=== PATIENT | male | born 1960 | race Caucasian/White ===

== ENCOUNTER 2018-02-11 10:46 | Inpatient (IN) | payer MEDICAID, MEDICARE ==
[~2018-02-11] VITALS: Ht 175.3 cm; Wt 82.0 kg
[2018-02-11] MEDS ORDERED: METF500T4 PO (11:02)
[2018-02-11] MEDS ORDERED: CALC168T7 PO (11:02)
[2018-02-11 11:40] LABS: BASOPHILS # (AUTO) 0.02 x10^3/uL (0-0.1); BASOPHILS % (AUTO) 0 % (0-1); EOSINOPHILS # (AUTO) 0.25 x10^3/uL (0-0.4); EOSINOPHILS % (AUTO) 2 % (1-7); LYMPHOCYTES # (AUTO) 2.11 x10^3/uL (1-3.4); LYMPHOCYTES % (AUTO) 18 % (22-44); MD NO; MEAN CORPUSCULAR HEMOGLOBIN 34.4 pg (27.5-34.5); MEAN CORPUSCULAR HGB CONC 34.6 g/dL (33.2-36.2); MEAN CORPUSCULAR VOLUME 99.4 fL (81-97); MEAN PLATELET VOLUME 8.2 fL (7.4-10.4); MONOCYTES # (AUTO) 1.09 x10^3/uL (0.2-0.8); MONOCYTES % (AUTO) 9 % (2-9); NEUTROPHILS % (AUTO) 70 % (42-75); PLATELET COUNT 236 x10^3/uL (130-400); RED BLOOD COUNT 4.47 x10^6/uL (4.38-5.82); RED CELL DISTRIBUTION WIDTH 13.6 % (9.4-14.8)
[2018-02-11 11:51] LABS: ANION GAP 12 mmol/L (5-15); CALCIUM 9.8 mg/dL (8.5-10.1); CHLORIDE 103 mmol/L (98-107); CREATININE 1.33 mg/dL (0.7-1.3)
[2018-02-11 12:00] LABS: MICROSCOPIC NOT IND
[2018-02-11 12:09] LABS: CULTURE INDICATED? NO
[2018-02-11] MEDS ORDERED: PIPERACILLIN/TAZO/PMX 4.5GM 100 ML IV ONE (15:30)
[2018-02-11] MEDS ORDERED: BUPIVACAINE/PF 0.25% ONE (15:48)
[2018-02-11] MEDS ORDERED: VANCOMYCIN PER PHARMACY MC PRN (16:00)
[2018-02-11] MEDS ORDERED: ONDANSETRON 2MG/ML, 2ML IVPush PRN (16:00)
[2018-02-11] MEDS ORDERED: MIDAZOLAM 1 MG/ML, 2ML ONE (16:00)
[2018-02-11] MEDS ORDERED: morphine SULFATE 10 MG/ML, 1ML IVPush PRN (16:00)
[2018-02-11] MEDS ORDERED: VANCOMYCIN PMX 1GM/200ML 200 ML IV ONE (16:00)
[2018-02-11] MEDS ORDERED: FENTANYL PF 100 MCG/2ML ONE (16:00)
[2018-02-11] MEDS ORDERED: hydrALAzine 20 MG/ML, 1ML IVPush PRN (16:00)
[2018-02-11] MEDS ORDERED: SUCCINYLCHOLINE 20 MG/ML, 10ML ONE (16:28)
[2018-02-11] MEDS ORDERED: PROPOFOL 10 MG/ML, 20ML ONE (16:28)
[2018-02-11] MEDS ORDERED: ROCURONIUM 10 MG/ML,10ML ONE (16:28)
[2018-02-11] MEDS ORDERED: ONDANSETRON 2MG/ML, 2ML ONE (16:28)
[2018-02-11] MEDS: INSULIN LISPRO 100 UNITS/ML, PEN SQ-INSULIN SCH ×2 (16:30→22:04)
[2018-02-11] MEDS ORDERED: BACITRACIN OINT 500U/GM, 15 GM ONE (17:00)
[2018-02-11] MEDS ORDERED: INSULIN SINGLE DOSE, ER SQ-INSULIN ONE (17:19)
[2018-02-11 17:29] LABS: FREE T4 (FREE THYROXINE) 1.05 ng/dL (0.76-1.46); THYROID STIMULATING HORMONE 1.82 mIU/L (0.358-3.740)
[2018-02-11] MEDS ORDERED: morphine SULFATE 10 MG/ML, 1ML IV PRN (17:30)
[2018-02-11] MEDS ORDERED: MIDAZOLAM 1 MG/ML, 2ML IV PRN (17:30)
[2018-02-11] MEDS ORDERED: PROMETHAZINE 25 MG/ML, 1ML IV PRN (17:30)
[2018-02-11] MEDS ORDERED: ACETAMINOPHEN 325 MG TABLET PO PRN (17:30)
[2018-02-11] MEDS ORDERED: FENTANYL PF 100 MCG/2ML IV PRN (17:30)
[2018-02-11 17:41] LABS: HEMOGLOBIN A1C 12.7 % (4.2-6.3)
[2018-02-11] MEDS ORDERED: ACETAMINOPHEN 650 MG/20.3 ML UDC ONE (17:55)
[2018-02-11] MEDS: OXYcodone 5 MG/5 ML ORAL.SOL UDC PO PRN ×2 (17:55→22:36)
[2018-02-11] MEDS: ACETAMINOPHEN 325 MG TABLET PO PRN ×2 (17:55→21:45)
[2018-02-11] MEDS ORDERED: OXYcodone 5 MG/5 ML ORAL.SOL UDC ONE (17:56)
[2018-02-11] MEDS ORDERED: PIPERACILLIN/TAZO 2.25 GM in SODIUM CHLORIDE 0.9% 50 ML IV SCH (18:30)
[2018-02-11] MEDS: SODIUM CHLORIDE 0.9% 1,000 ML IV SCH (18:45)
[2018-02-11 18:55] VITALS: BP 133/86
[2018-02-11] MEDS ORDERED: PHARMACOKINETIC CONSULTATION MC ONE (19:00)
[2018-02-11] MEDS ORDERED: PHARMACOKINETIC MONITORING MC PRN (19:00)
[2018-02-11] MEDS: VANCOMYCIN 1,600 MG in SODIUM CHLORIDE 0.9% 250 ML IV SCH (19:58)
[2018-02-11] MEDS: NICOTINE 21 MG/24 HR PATCH.TD24 TD SCH (21:42)
[2018-02-11] MEDS: PIPERACILLIN/TAZO/PMX 2.25GM 50 ML IV SCH (21:42)
[2018-02-11] MEDS: INSULIN GLARGINE 100 UNITS/ML, PEN SQ-INSULIN SCH (22:04)
[2018-02-11 23:53] VITALS: BP 110/67
[2018-02-12] MEDS: HYDROcodone/APAP 5/325 TABLET PO PRN ×6 (03:00→23:19)
[2018-02-12] MEDS: PIPERACILLIN/TAZO/PMX 2.25GM 50 ML IV SCH ×4 (03:11→20:41)
[2018-02-12 03:59] VITALS: BP 157/88
[2018-02-12 06:11] LABS: BASOPHILS # (AUTO) 0.08 x10^3/uL (0-0.1); BASOPHILS % (AUTO) 1 % (0-1); EOSINOPHILS % (AUTO) 3 % (1-7); LYMPHOCYTES % (AUTO) 17 % (22-44); MD NO; MEAN CORPUSCULAR HEMOGLOBIN 34.1 pg (27.5-34.5); MEAN CORPUSCULAR HGB CONC 34.2 g/dL (33.2-36.2); MEAN CORPUSCULAR VOLUME 99.8 fL (81-97); MEAN PLATELET VOLUME 8.1 fL (7.4-10.4); MONOCYTES # (AUTO) 1.25 x10^3/uL (0.2-0.8); MONOCYTES % (AUTO) 9 % (2-9); NEUTROPHILS # (AUTO) 9.54 x10^3/uL (1.8-6.8); NEUTROPHILS % (AUTO) 70 % (42-75); PLATELET COUNT 206 x10^3/uL (130-400); RED BLOOD COUNT 4.25 x10^6/uL (4.38-5.82); RED CELL DISTRIBUTION WIDTH 13.2 % (9.4-14.8)
[2018-02-12 06:20] LABS: ALBUMIN 2.5 g/dL (3.4-5.0); ANION GAP 8 mmol/L (5-15); CALCIUM 8.6 mg/dL (8.5-10.1); CHLORIDE 105 mmol/L (98-107)
[2018-02-12 06:24] LABS: ALANINE AMINOTRANSFERASE 20 U/L (12-78); ALKALINE PHOSPHATASE 74 U/L (45-117); BILIRUBIN,TOTAL 0.6 mg/dL (0.2-1.0); CREATININE 0.97 mg/dL (0.7-1.3); TOTAL PROTEIN 6.8 g/dL (6.4-8.2)
[2018-02-12] MEDS: SODIUM CHLORIDE 0.9% 1,000 ML IV SCH ×2 (06:48→21:00)
[2018-02-12 07:20] VITALS: BP 155/93
[2018-02-12] MEDS: INSULIN LISPRO 100 UNITS/ML, PEN SQ-INSULIN SCH ×4 (08:02→20:58)
[2018-02-12] MEDS ORDERED: MAGNESIUM SULFATE PMX 2GM/50ML 50 ML IV ONE (09:30)
[2018-02-12] MEDS ORDERED: POTASSIUM PHOSPHATE 44 MEQ in SODIUM CHLORIDE 0.9% 500 ML IV ONE (09:30)
[2018-02-12] MEDS: VANCOMYCIN 1,600 MG in SODIUM CHLORIDE 0.9% 250 ML IV SCH (13:42)
[2018-02-12 13:50] VITALS: BP 149/83
[2018-02-12 18:40] VITALS: BP 144/88
[2018-02-12] MEDS: NICOTINE 21 MG/24 HR PATCH.TD24 TD SCH (20:48)
[2018-02-12] MEDS: INSULIN GLARGINE 100 UNITS/ML, PEN SQ-INSULIN SCH (20:58)
[2018-02-13 01:47] VITALS: BP 129/80
[2018-02-13] MEDS: PIPERACILLIN/TAZO/PMX 2.25GM 50 ML IV SCH ×4 (03:28→20:42)
[2018-02-13] MEDS: HYDROcodone/APAP 5/325 TABLET PO PRN ×5 (03:28→20:01)
[2018-02-13 05:54] LABS: BASOPHILS # (AUTO) 0.05 x10^3/uL (0-0.1); BASOPHILS % (AUTO) 0 % (0-1); EOSINOPHILS # (AUTO) 0.27 x10^3/uL (0-0.4); EOSINOPHILS % (AUTO) 2 % (1-7); LYMPHOCYTES # (AUTO) 1.91 x10^3/uL (1-3.4); LYMPHOCYTES % (AUTO) 15 % (22-44); MD NO; MEAN CORPUSCULAR HEMOGLOBIN 34.1 pg (27.5-34.5); MEAN CORPUSCULAR HGB CONC 34.5 g/dL (33.2-36.2); MEAN CORPUSCULAR VOLUME 98.9 fL (81-97); MEAN PLATELET VOLUME 7.9 fL (7.4-10.4); MONOCYTES # (AUTO) 1.18 x10^3/uL (0.2-0.8); MONOCYTES % (AUTO) 9 % (2-9); NEUTROPHILS # (AUTO) 9.31 x10^3/uL (1.8-6.8); NEUTROPHILS % (AUTO) 73 % (42-75); PLATELET COUNT 227 x10^3/uL (130-400); RED BLOOD COUNT 4.15 x10^6/uL (4.38-5.82); RED CELL DISTRIBUTION WIDTH 13.4 % (9.4-14.8)
[2018-02-13 05:55] LABS: ALANINE AMINOTRANSFERASE 21 U/L (12-78); ALBUMIN 2.6 g/dL (3.4-5.0); ANION GAP 9 mmol/L (5-15); CALCIUM 8.7 mg/dL (8.5-10.1); CHLORIDE 103 mmol/L (98-107); CREATININE 0.78 mg/dL (0.7-1.3)
[2018-02-13 05:57] LABS: ALKALINE PHOSPHATASE 87 U/L (45-117); BILIRUBIN,TOTAL 0.6 mg/dL (0.2-1.0); TOTAL PROTEIN 6.9 g/dL (6.4-8.2)
[2018-02-13] MEDS: VANCOMYCIN 1,600 MG in SODIUM CHLORIDE 0.9% 250 ML IV SCH (06:36)
[2018-02-13] MEDS: INSULIN LISPRO 100 UNITS/ML, PEN SQ-INSULIN SCH ×4 (07:42→20:42)
[2018-02-13] MEDS: SODIUM CHLORIDE 0.9% 1,000 ML IV SCH ×2 (07:47→15:56)
[2018-02-13 08:40] VITALS: BP 145/86
[2018-02-13 12:05] VITALS: BP 154/89
[2018-02-13 17:27] VITALS: BP 121/78
[2018-02-13] MEDS: NICOTINE 21 MG/24 HR PATCH.TD24 TD SCH (19:51)
[2018-02-13 20:33] VITALS: BP 162/89
[2018-02-13] MEDS: INSULIN GLARGINE 100 UNITS/ML, PEN SQ-INSULIN SCH (20:41)
[2018-02-14] MEDS: HYDROcodone/APAP 5/325 TABLET PO PRN ×6 (00:15→20:24)
[2018-02-14] MEDS: SODIUM CHLORIDE 0.9% 1,000 ML IV SCH ×3 (00:20→21:08)
[2018-02-14] MEDS: VANCOMYCIN 1,600 MG in SODIUM CHLORIDE 0.9% 250 ML IV SCH ×2 (00:20→18:26)
[2018-02-14 00:27] VITALS: BP 147/86
[2018-02-14] MEDS: PIPERACILLIN/TAZO/PMX 2.25GM 50 ML IV SCH ×4 (04:02→21:00)
[2018-02-14 04:10] VITALS: BP 112/70
[2018-02-14 05:56] LABS: BASOPHILS # (AUTO) 0.04 x10^3/uL (0-0.1); BASOPHILS % (AUTO) 0 % (0-1); EOSINOPHILS # (AUTO) 0.37 x10^3/uL (0-0.4); EOSINOPHILS % (AUTO) 3 % (1-7); LYMPHOCYTES # (AUTO) 2.31 x10^3/uL (1-3.4); LYMPHOCYTES % (AUTO) 20 % (22-44); MD NO; MEAN CORPUSCULAR HEMOGLOBIN 34.3 pg (27.5-34.5); MEAN CORPUSCULAR HGB CONC 34.2 g/dL (33.2-36.2); MEAN CORPUSCULAR VOLUME 100.2 fL (81-97); MEAN PLATELET VOLUME 8.3 fL (7.4-10.4); MONOCYTES # (AUTO) 1.13 x10^3/uL (0.2-0.8); MONOCYTES % (AUTO) 10 % (2-9); NEUTROPHILS % (AUTO) 66 % (42-75); PLATELET COUNT 215 x10^3/uL (130-400); RED BLOOD COUNT 3.96 x10^6/uL (4.38-5.82); RED CELL DISTRIBUTION WIDTH 13.6 % (9.4-14.8)
[2018-02-14 06:01] LABS: ALBUMIN 2.3 g/dL (3.4-5.0); ANION GAP 8 mmol/L (5-15); CALCIUM 8.6 mg/dL (8.5-10.1); CHLORIDE 102 mmol/L (98-107)
[2018-02-14 06:05] LABS: ALANINE AMINOTRANSFERASE 21 U/L (12-78); ALKALINE PHOSPHATASE 95 U/L (45-117); BILIRUBIN,TOTAL 0.8 mg/dL (0.2-1.0)
[2018-02-14 06:36] VITALS: BP 154/77
[2018-02-14] MEDS: INSULIN LISPRO 100 UNITS/ML, PEN SQ-INSULIN SCH ×4 (07:25→21:00)
[2018-02-14 12:48] VITALS: BP 137/89
[2018-02-14 19:30] VITALS: BP 128/73
[2018-02-14] MEDS: NICOTINE 21 MG/24 HR PATCH.TD24 TD SCH (20:24)
[2018-02-14] MEDS: INSULIN GLARGINE 100 UNITS/ML, PEN SQ-INSULIN SCH (20:59)
[2018-02-15] MEDS: HYDROcodone/APAP 5/325 TABLET PO PRN ×6 (00:33→21:36)
[2018-02-15 03:10] VITALS: BP 150/85
[2018-02-15] MEDS: PIPERACILLIN/TAZO/PMX 2.25GM 50 ML IV SCH ×4 (03:34→21:36)
[2018-02-15 05:53] LABS: BASOPHILS # (AUTO) 0.05 x10^3/uL (0-0.1); BASOPHILS % (AUTO) 1 % (0-1); EOSINOPHILS % (AUTO) 5 % (1-7); LYMPHOCYTES # (AUTO) 1.88 x10^3/uL (1-3.4); LYMPHOCYTES % (AUTO) 21 % (22-44); MD NO; MEAN CORPUSCULAR HEMOGLOBIN 33.8 pg (27.5-34.5); MEAN CORPUSCULAR HGB CONC 34.3 g/dL (33.2-36.2); MEAN CORPUSCULAR VOLUME 98.4 fL (81-97); MEAN PLATELET VOLUME 8.5 fL (7.4-10.4); MONOCYTES # (AUTO) 1.16 x10^3/uL (0.2-0.8); MONOCYTES % (AUTO) 13 % (2-9); NEUTROPHILS # (AUTO) 5.34 x10^3/uL (1.8-6.8); NEUTROPHILS % (AUTO) 60 % (42-75); PLATELET COUNT 240 x10^3/uL (130-400); RED BLOOD COUNT 4.53 x10^6/uL (4.38-5.82); RED CELL DISTRIBUTION WIDTH 13.5 % (9.4-14.8)
[2018-02-15 05:54] LABS: ALBUMIN 2.7 g/dL (3.4-5.0); ANION GAP 8 mmol/L (5-15); CALCIUM 9.6 mg/dL (8.5-10.1); CHLORIDE 102 mmol/L (98-107)
[2018-02-15 05:59] LABS: ALANINE AMINOTRANSFERASE 25 U/L (12-78); ALKALINE PHOSPHATASE 142 U/L (45-117); BILIRUBIN,TOTAL 0.9 mg/dL (0.2-1.0); CREATININE 0.99 mg/dL (0.7-1.3); TOTAL PROTEIN 7.9 g/dL (6.4-8.2)
[2018-02-15] MEDS: SODIUM CHLORIDE 0.9% 1,000 ML IV SCH ×3 (06:00→21:49)
[2018-02-15] MEDS: INSULIN LISPRO 100 UNITS/ML, PEN SQ-INSULIN SCH ×4 (07:30→21:52)
[2018-02-15 08:14] VITALS: BP 126/79
[2018-02-15] MEDS: INSULIN GLARGINE 100 UNITS/ML, PEN SQ-INSULIN SCH ×2 (10:42→16:48)
[2018-02-15 13:49] VITALS: BP 127/80
[2018-02-15] MEDS: VANCOMYCIN 1,600 MG in SODIUM CHLORIDE 0.9% 250 ML IV SCH (13:51)
[2018-02-15] MEDS: NICOTINE 21 MG/24 HR PATCH.TD24 TD SCH (21:36)
[2018-02-15 21:59] VITALS: BP 114/74
[2018-02-16 01:12] VITALS: BP 109/69
[2018-02-16] MEDS: HYDROcodone/APAP 5/325 TABLET PO PRN ×4 (01:46→13:56)
[2018-02-16] MEDS: PIPERACILLIN/TAZO/PMX 2.25GM 50 ML IV SCH ×2 (03:22→09:51)
[2018-02-16 05:10] LABS: MEAN CORPUSCULAR HEMOGLOBIN 33.9 pg (27.5-34.5); MEAN CORPUSCULAR HGB CONC 33.8 g/dL (33.2-36.2); MEAN CORPUSCULAR VOLUME 100.4 fL (81-97); MEAN PLATELET VOLUME 8.4 fL (7.4-10.4); PLATELET COUNT 295 x10^3/uL (130-400); RED BLOOD COUNT 4.26 x10^6/uL (4.38-5.82); RED CELL DISTRIBUTION WIDTH 13.7 % (9.4-14.8)
[2018-02-16 05:17] LABS: ALBUMIN 2.6 g/dL (3.4-5.0); ANION GAP 9 mmol/L (5-15); CALCIUM 9.5 mg/dL (8.5-10.1); CHLORIDE 102 mmol/L (98-107)
[2018-02-16 05:22] LABS: ALANINE AMINOTRANSFERASE 27 U/L (12-78); ALKALINE PHOSPHATASE 136 U/L (45-117); BILIRUBIN,TOTAL 0.5 mg/dL (0.2-1.0); CREATININE 1.09 mg/dL (0.7-1.3); TOTAL PROTEIN 7.7 g/dL (6.4-8.2)
[2018-02-16] MEDS: SODIUM CHLORIDE 0.9% 1,000 ML IV SCH ×2 (05:40→14:00)
[2018-02-16] MEDS: INSULIN LISPRO 100 UNITS/ML, PEN SQ-INSULIN SCH ×2 (05:44→13:57)
[2018-02-16 06:06] LABS: BASOPHILS # (AUTO) 0.09 x10^3/uL (0-0.1); BASOPHILS % (AUTO) 1 % (0-1); EOSINOPHILS # (AUTO) 0.54 x10^3/uL (0-0.4); EOSINOPHILS % (AUTO) 5 % (1-7); LYMPHOCYTES # (AUTO) 2.68 x10^3/uL (1-3.4); LYMPHOCYTES % (AUTO) 27 % (22-44); MD SCAN; MONOCYTES # (AUTO) 1.56 x10^3/uL (0.2-0.8); MONOCYTES % (AUTO) 16 % (2-9); NEUTROPHILS # (AUTO) 5.13 x10^3/uL (1.8-6.8); NEUTROPHILS % (AUTO) 51 % (42-75)
[2018-02-16] MEDS: VANCOMYCIN 1,600 MG in SODIUM CHLORIDE 0.9% 250 ML IV SCH (06:38)
[2018-02-16 07:32] VITALS: BP 119/75
[2018-02-16] MEDS: INSULIN GLARGINE 100 UNITS/ML, PEN SQ-INSULIN SCH (09:51)
[2018-02-16] MEDS ORDERED: GLIM4TAB2 PO (10:55)
[2018-02-16] MEDS ORDERED: IBUP-1222 PO (10:55)
[2018-02-16] MEDS ORDERED: NICO-487 TD (10:55)
[2018-02-16] MEDS ORDERED: AMOX1TAB64 PO (10:55)
[2018-02-16 15:52] VITALS: BP 136/78
== END 2018-02-16 16:05 | disposition home or self-care (01) | DRG 709 ==
LOC: ED 11:27 → EDIP 15:14 → SUATTDRO 15:25 → 4NOR 18:18
PROVIDERS: ADMIT Hospitalist; ATTEND Internal Medicine
PROC: 0VNSXZZ Release Penis, External Approach (ICD-10-PCS; principal; 2018-02-11 17:00)
DX: N48.22 Cellulitis of corpus cavernosum and penis (principal); E11.00 Type 2 diabetes mellitus with hyperosmolarity without nonketotic hyperglycemic-hyperosmolar coma (NKHHC); E43 Unspecified severe protein-calorie malnutrition; N17.0 Acute kidney failure with tubular necrosis; E87.0 Hyperosmolality and hypernatremia; N39.0 Urinary tract infection, site not specified; E11.65 Type 2 diabetes mellitus with hyperglycemia; N47.1 Phimosis; Z80.0 Family history of malignant neoplasm of digestive organs; Z87.891 Personal history of nicotine dependence; Z68.26 Body mass index [BMI] 26.0-26.9, adult
CPT/HCPCS: 36415; 80048; 80053; 80202; 81003; 82040; 82962; 83036; 83735; 84100; 84439; 84443; 85025; 87040; 87086; 96372; J2250; J2405; J2543; J2704; J3010; J3370; J3490; J0330; J1815; J3475; J7030; J7040; J7050